=== PATIENT | male | born 1980 ===

== ENCOUNTER 2016-07-16 17:25 | Inpatient (IN) | payer MEDICAID, OTHER ==
[2016-07-16 17:29] VITALS: BMI 20.3
--- NOTE | 2016-07-16 18:05 | ED PDOC ---
Arrival/HPI - General Chief Complaint: Psychiatric Evaluation Time Seen by Provider: 07/16/16 17:39 Historian: Patient - History of Present Illness Narrative History of Present Illness (Text): 07/16/16 17:42 36 y/o male, nkda, biba for psychiatric evaluation due to the non-compliant with the psychiatric medication and being combative at home. Pt. has been agitated today, destroying the furniture, doesn't wanna take the psychiatric medication, no homicidal or suicidal ideation, no auditory or visual hallucination, no night sweat, no other medical or psychological complaints. Past Medical History - Provider Review Nursing Documentation Reviewed: Yes - Infectious Disease Hx of Infectious Diseases: None - Psychiatric Hx Psychophysiologic Disorder: Yes Hx Schizophrenia: Yes Hx Substance Use: No - Anesthesia Hx Anesthesia: No Hx Anesthesia Reactions: No Hx Malignant Hyperthermia: No Family/Social History - Physician Review Nursing Documentation Reviewed: Yes Family/Social History: Unknown Family HX Smoking Status: Current Some Days Smoker Hx Alcohol Use: Yes Hx Substance Use: No Allergies/Home Meds Allergies/Adverse Reactions: Allergies No Known Allergies Allergy (Verified 07/16/16 23:40) Home Medications: Home Meds Medication Instructions Recorded Confirmed No Known Home Med 07/16/16 07/16/16 Review of Systems - Review of Systems Constitutional: absent: Fatigue, Fevers Respiratory: absent: SOB, Cough, Sputum Cardiovascular: absent: Chest Pain Gastrointestinal: absent: Abdominal Pain, Diarrhea, Nausea, Vomiting Skin: absent: Rash, Pruritis, Skin Lesions, Laceration, Abscess, Ulcer, Cellulitis Physical Exam Vital Signs Reviewed: Yes Vital Signs Temp Pulse Resp BP Pulse Ox 07/16/16 22:50 88 18 127/93 H 100 07/16/16 21:00 79 18 147/84 98 07/16/16 19:12 89 18 141/99 H 99 07/16/16 17:35 98.4 F 90 16 140/95 H 100 Temperature: Afebrile Blood Pressure: Hypertensive Pulse: Regular Respiratory Rate: Normal Appearance: Positive for: Well-Appearing, Non-Toxic, Comfortable Pain Distress: None Mental Status: Positive for: Alert and Oriented X 3 - Systems Exam Head: Present: Atraumatic, Normocephalic Pupils: Present: PERRL Extroacular Muscles: Present: EOMI Conjunctiva: Present: Normal Mouth: Present: Moist Mucous Membranes Neck: Present: Normal Range of Motion Respiratory/Chest: Present: Clear to Auscultation, Good Air Exchange. No: Respiratory Distress, Accessory Muscle Use Cardiovascular: Present: Regular Rate and Rhythm, Normal S1, S2. No: Murmurs Abdomen: Present: Normal Bowel Sounds. No: Tenderness, Distention, Peritoneal Signs Back: Present: Normal Inspection Upper Extremity: Present: Normal Inspection. No: Cyanosis, Edema Lower Extremity: Present: Normal Inspection. No: Edema Neurological: Present: GCS=15, Speech Normal, Motor Func Grossly Intact, Gait Normal, Memory Normal Skin: Present: Warm, Dry, Normal Color. No: Rashes Psychiatric: Present: Alert, Oriented x 3, Normal Insight, Normal Concentration Medical Decision Making ED Course and Treatment: 07/16/16 18:07 -labs/ua/uds -ekg -chest x-ray -observe and reassess 07/16/16 19:43 -chest x-ray show no active disease -EKG: NSR @ 83 BPM, no ST elevation or depression, no T wave inversion -Labs are non-significant -UA and UDS show no acute findings -Pt. is medically clear and stable for psychiatric admission. -PES Miri clement and will evaluate the patient. 07/16/16 21:45 -Pt. evaluated by the PES, agreed to be admitted for schizophrenia - Lab Interpretations Lab Results: 07/16/16 18:15 07/16/16 18:15 Lab Results 07/16/16 18:38: Urine Color Yellow, Urine Appearance Clear, Urine pH 7.5, Ur Specific [place] 1.020, Urine Protein Negative, Urine Glucose (UA) Negative, Urine Ketones Negative, Urine Blood Negative, Urine Nitrate Negative, Urine Bilirubin Negative, Urine Urobilinogen 0.2, Ur Leukocyte Esterase Negative, Urine Opiates Screen Negative, Urine Methadone Screen Negative, Ur Barbiturates Screen Negative, Ur Phencyclidine Scrn Negative, Ur Amphetamines Screen Negative , U Benzodiazepines Scrn Negative, U Oth Cocaine Metabols Negative, U Cannabinoids Screen Negative 07/16/16 18:15: WBC 8.7, RBC 4.65, Hgb 14.4, Hct 40.8 L, MCV 87.7, MCH 31.0, MCHC 35.3, RDW 11.9, Plt Count 237, MPV 10.1, Gran % 62.2, Lymph % (Auto) 26.6, [place] % (Auto) 6.8 H, Eos % (Auto) 3.9, Baso % (Auto) 0.5, Gran # 5.40, Lymph # 2.3, [place] # 0.6, Eos # 0.3, Baso # 0.04, Sodium 139, Potassium 4.1, Chloride 101 , Carbon Dioxide 29, Anion Gap 13, BUN 13, Creatinine 1.0, Est GFR ( Amer ) > 60, Est GFR (Non-Af Amer) > 60, Random Glucose 125 H, Calcium 9.1, Total Bilirubin 0.6, AST 25, ALT 45, Alkaline Phosphatase 46, Total Protein 7.8, Albumin 4.1, Globulin 3.6, Albumin/Globulin Ratio 1.1, Salicylates < 1 L, Acetaminophen < 10.0 L, Alcohol, Quantitative < 10 I have reviewed the lab results: Yes Interpretation: No clinic. lab abnormalty - RAD Interpretation Radiology Orders: 07/16/16 17:42 CHEST PORTABLE [RAD] Stat no active disease Reinsurance Claims Analyst: Radiologist - EKG Interpretation EKG Interpretation (Text): 07/16/16 18:08 NSR @ 83 BPM, no ST elevation or depression, no T wave inversion Interpreted by ED Physician: Yes Type: 12 lead EKG Comparison: No previous EKG avail. - Medication Orders Current Medication Orders: Acetaminophen (Tylenol 325mg Tab) 650 mg PO Q4H PRN PRN Reason: Pain, Mild (1-3) Al Hydrox/Mg Hydrox/Simethicone (Maalox Plus 30 Ml) 30 ml PO DAILY PRN PRN Reason: Upset Stomach Haloperidol (Haldol) 5 mg PO Q6H PRN; Protocol PRN Reason: Agitation Haloperidol Lactate (Haldol) 5 mg IM Q6H PRN; Protocol PRN Reason: Agitation Lorazepam (Ativan) 2 mg PO Q6H PRN; Protocol PRN Reason: Agitation Lorazepam (Ativan) 2 mg IM Q6H PRN; Protocol PRN Reason: Agitation Lorazepam (Ativan) 1 mg PO AMHS [facility] PRN Reason: Protocol Last Admin: 07/18/16 22:36 Dose: 1 MG Behavioural Document 07/18/16 22:36 CLI (Rec: 07/18/16 22:36 CLI [id number]) Maintenance Maintenance Dose Yes Magnesium Hydroxide (Milk Of Magnesia) 30 ml PO DAILY PRN PRN Reason: Constipation Olanzapine (Zyprexa Zydis) 5 mg PO AMHS SHAR[facility] PRN Reason: Protocol Last Admin: 07/18/16 22:36 Dose: 5 MG Behavioural Document 07/18/16 22:36 CLI (Rec: 07/18/16 22:36 CLI [id number]) Maintenance Maintenance Dose Yes Zaleplon (Sonata) 10 mg PO HS PRN PRN Reason: Insomnia Last Admin: 07/17/16 22:41 Dose: 10 MG Discontinued Medications Citalopram Hydrobromide (Celexa) 10 mg PO DAILY SHARIF Last Admin: 07/17/16 10:16 Dose: 10 MG Lorazepam (Ativan) 0.5 mg PO AMHS SHAR[facility] PRN Reason: Protocol Last Admin: 07/18/16 09:13 Dose: 0.5 MG Re-Assess: Reassess Psych Meds Document 07/18/16 10:13 ABO (Rec: 07/18/16 18:16 ABO [id number]) Reassess Psych Med Ineffective-LIP notifed - PA / WHARF HAND / Resident Statement MD/DO has reviewed & agrees with the documentation as recorded. Disposition/Present on Arrival - Present on Arrival Any Indicators Present on Arrival: No History of DVT/PE: No History of Uncontrolled Diabetes: No Urinary Catheter: No History of Decub. Ulcer: No History Surgical Site Infection Following: None - Disposition Have Diagnosis and Disposition been Completed?: Yes Diagnosis: Schizophrenia Disposition: HOSPITALIZED Disposition Time: 21:46 Patient Plan: Admission Patient Problems: Current Active Problems Problem Status Diagnosed Schizophrenia Acute Condition: GOOD
[2016-07-16 18:30] LABS: ADD MANUAL DIFF? NO
[2016-07-16 18:36] LABS: BASO # 0.04 K/mm3 (0.0-2.0); BASO % 0.5 % (0.0-3.0); EOS # 0.3 (0.0-0.7); EOS % 3.9 % (1.5-5.0); GRAN % 62.2 % (50.0-68.0); HEMATOCRIT 40.8 % (42.0-52.0); LYMPH # 2.3 (1.2-3.4); LYMPH % 26.6 % (22.0-35.0); MEAN CELL VOLUME 87.7 fL (80.0-105.0); MEAN CORPUSCULAR HGB CONC 35.3 g/dl (31.0-37.0); MEAN PLATELET VOLUME 10.1 fl (7.0-11.0); MONO # 0.6 (0.1-0.6); MONO % 6.8 % (1.0-6.0); PLATELET COUNT 237 10^3/uL (120.0-450.0); RED CELL DISTRIBUTION WIDTH 11.9 % (11.5-14.5); WHITE BLOOD COUNT 8.7 10^3/ul (4.5-11.0)
[2016-07-16 18:43] LABS: ALB/GLOB RATIO 1.1 (1.1-1.8); ALKALINE PHOSPHATASE 46 U/L (38-133); ALT/SGPT 45 U/L (7-56); AST/SGOT 25 U/L (15-59); BILIRUBIN,TOTAL 0.6 mg/dL (0.2-1.3); BLOOD UREA NITROGEN 13 mg/dL (7-21); CALCIUM 9.1 mg/dL (8.4-10.5); CARBON DIOXIDE 29 mmol/L (21-33); CHLORIDE 101 mmol/L (98-107); GFR AFRICAN-AMERICAN > 60; GLUCOSE,RANDOM 125 mg/dL (70-110); POTASSIUM 4.1 mmol/L (3.6-5.0); SODIUM 139 mmol/L (132-148); TOTAL PROTEIN 7.8 g/dL (5.8-8.3)
[2016-07-16 19:12] LABS: PH,URINE 7.5 (4.7-8.0); URINE BILIRUBIN NEGATIVE (NEGATIVE); URINE BLOOD NEGATIVE (NEGATIVE); URINE GLUCOSE (UA) NEGATIVE (NEGATIVE); URINE KETONE NEGATIVE (NEGATIVE); URINE LEUKOCYTE ESTERASE NEGATIVE Leu/uL (NEGATIVE); URINE PROTEIN NEGATIVE mg/dL (<30 mg/dL); URINE UROBILINOGEN 0.2 E.U./dL (<1 E.U./dL)
[2016-07-16 19:35] LABS: URINE APPEARANCE CLEAR (CLEAR); URINE COLOR YELLOW (YELLOW)
[2016-07-16] MEDS ORDERED: Alum-Mag Hydrox-Simethicone Susp (30 mL) PO PRN (23:23)
[2016-07-16] MEDS ORDERED: Magnesium Hydroxide Susp 30 ml UD PO PRN (23:23)
[2016-07-17 08:22] LABS: CHOLESTEROL 168 mg/dL (130-200); GLUCOSE,FASTING 86 mg/dL (65-110)
--- NOTE | 2016-07-17 09:28 | RAD ---
HISTORY: Medical clearance. Technique: Single view portable semi erect @ 18:00. COMPARISON: No prior. FINDINGS: LUNGS: No active pulmonary disease. PLEURA: No significant pleural effusion identified, no pneumothorax apparent. CARDIOVASCULAR: Normal. OSSEOUS STRUCTURES: No significant abnormalities. VISUALIZED UPPER ABDOMEN: Normal. OTHER FINDINGS: None. IMPRESSION: No active disease. Concordant results with the preliminary interpretation rendered by the emergency department physician procedure.
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
[2016-07-17] MEDS: OLANZapine 5 mg Disintegrating Tab PO SCH ×2 (15:00→22:42)
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
--- NOTE | 2016-07-17 18:06 | CARD ---
APPROVED REPORT EKG Measurement Heart [id number] <Conclusion> Normal sinus rhythm Normal ECG
[2016-07-18] MEDS: OLANZapine 5 mg Disintegrating Tab PO SCH ×2 (09:13→22:36)
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
--- NOTE | 2016-07-19 09:15 | PCM.PYCHPN ---
Psychiatric Progress Note - Psychiatric Progress Note Patient seen today, length of contact: 25 minutes Patient Chief Complaint: "tired, doing okay" Problems Identified/Issues Discussed: I reviewed assessment and recent notes. Patient was interviewed at bedside. Patient is calm and superficially cooperative during questioning. He is alert and oriented to month and year. Indicates that he is "tired, doing okay". Affect is flat. Patient does not appear to be hallucinating and he denies having any hallucinations. Delusions were not elicited though does appear preoccupied. Patient denies any new discomfort or pain and has been tolerating his medications. Sleeping well overnight. Nursing notes indicate that patient has been visible on the unit and generally keeps himself. Patient has minimal contact with other patients, appears shy and quiet. Not observed to be responding to internal stimuli. There were no behavioral issues overnight Diagnostic Results: schizophrenia with catatonic features r/o schizoaffective Medication Change: No ( ) Medical Record Reviewed: Yes Mental Status Examination - Cognitive Function Orientation: Person, Place Memory: Intact Attention: Poor Concentration: Poor Association: Loose Fund of Knowledge: Poor - Mood Mood: Depressed ("tired, doing okay"), Anxious - Affect Affect: Flat - Speech Speech: Appropriate - Formal Thought Process Formal Thought Process: Delusions (none elicited today), Paranoia ("my mother was intimidating me, she was smirking") - Suicidal Ideation Suicidal Ideation: No - Homicidal Ideation Homicidal Ideation: No Goal/Treatment Plan - Goal/Treatment Plan Need for Continued Stay: Remain at risks for inpatient hospitalization, Severe depression anxiety, Discharge may exacerbated symptoms, Severe functional impairment Progress Toward Problem(s) and Goals/Treatment Plan: * c/w current tx and plan * No new weekend labs * Vitals reviewed and noted below: Selected Entries 07/18/16 07/18/16 07:07 16:26 Temperature 97.9 F Pulse Rate 63 81 Respiratory 20 Rate Blood Pressure 95/63 L 113/76 Estimated Date of D/C: 07/25/16 ( monitor closely)
[2016-07-19] MEDS: OLANZapine 5 mg Disintegrating Tab PO SCH ×2 (09:52→21:51)
[2016-07-20] MEDS: OLANZapine 5 mg Disintegrating Tab PO SCH ×2 (09:17→21:34)
--- NOTE | 2016-07-20 09:39 | PCM.PYCHPN ---
Psychiatric Progress Note - Psychiatric Progress Note Patient seen today, length of contact: 25 minutes Patient Chief Complaint: "feeling fine, getting better" Problems Identified/Issues Discussed: I reviewed recent notes and patient was interviewed at bedside. Patient is calm and superficially cooperative during questioning. He remains alert and oriented to month, year and location. Indicates that he is "feeling fine, getting better". Affect is flat. Patient does not appear to be hallucinating and he denies having any hallucinations. Delusions were not elicited though he does appear preoccupied. Patient denies any new discomfort or pain and has been tolerating his medications. Slept well last night. Nursing notes indicate that patient has been visible on the unit and still generally keeps himself. Patient has minimal contact with other patients, appears shy and quiet. Not observed to be responding to internal stimuli. There were no behavioral issues over the weekend Diagnostic Results: schizophrenia with catatonic features r/o schizoaffective Medication Change: No ( ) Medical Record Reviewed: Yes (reports, labs, vitals, notes) Mental Status Examination - Cognitive Function Orientation: Person, Place Memory: Intact Attention: Poor Concentration: Poor Association: Loose Fund of Knowledge: Poor - Mood Mood: Depressed ( "feeling fine, getting better"), Anxious - Affect Affect: Flat - Speech Speech: Appropriate - Formal Thought Process Formal Thought Process: Delusions (none elicited this weekend), Paranoia ("my mother was intimidating me, she was smirking") - Suicidal Ideation Suicidal Ideation: No - Homicidal Ideation Homicidal Ideation: No Goal/Treatment Plan - Goal/Treatment Plan Need for Continued Stay: Remain at risks for inpatient hospitalization, Severe depression anxiety, Discharge may exacerbated symptoms, Severe functional impairment Progress Toward Problem(s) and Goals/Treatment Plan: * c/w current tx and plan * No new weekend labs * Vitals reviewed and noted below: Selected Entries 07/19/16 07/20/16 06:00 07:51 Temperature 97.3 F L 97.5 F L Pulse Rate 68 73 Respiratory 20 20 Rate Blood Pressure 113/72 114/76 Estimated Date of D/C: 07/25/16 ( monitor closely)
[2016-07-21] MEDS: OLANZapine 5 mg Disintegrating Tab PO SCH (08:58)
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
[2016-07-22] MEDS: OLANZapine 5 mg Disintegrating Tab PO SCH ×2 (09:45→22:29)
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
[2016-07-23] MEDS: OLANZapine 5 mg Disintegrating Tab PO SCH ×2 (09:28→21:56)
--- NOTE | 2016-07-23 11:55 | PCM.PYCHPN ---
Psychiatric Progress Note - Psychiatric Progress Note Patient seen today, length of contact: 25 min Patient Chief Complaint: "feeling fine, getting better" Problems Identified/Issues Discussed: I reviewed recent notes and patient was interviewed at bedside. Patient is calm and superficially cooperative during questioning. Indicates that he is "feeling fine, getting better", current mood is "neutral". Feels more hopeful than hopeless. Affect remains flat and guarded. Responses are brief without elaboration though relevant to questioning. He still doesn't appear completely engaged during my interview. Patient denies having any hallucinations. Delusions were not elicited though he does appear preoccupied. Anxiety is under control. Patient denies any new discomfort or pain and has been tolerating his medications. Slept well last night. Nursing notes indicate that patient has been withdrawn and guarded on the unit with minimal participation. There were no behavioral issues overnight Diagnostic Results: schizophrenia with catatonic features r/o schizoaffective Medication Change: No ( ) Medical Record Reviewed: Yes (reports, labs, vitals, notes) Mental Status Examination - Cognitive Function Orientation: Person, Place, Situation Memory: Intact Attention: WNL Concentration: Poor Association: Loose Fund of Knowledge: Poor - Mood Mood: Depressed ( "feeling fine, getting better"), Anxious - Affect Affect: Flat - Speech Speech: Appropriate - Formal Thought Process Formal Thought Process: Delusions (none elicited ), Paranoia (appears guarded, flat today) - Suicidal Ideation Suicidal Ideation: No - Homicidal Ideation Homicidal Ideation: No Goal/Treatment Plan - Goal/Treatment Plan Need for Continued Stay: Remain at risks for inpatient hospitalization, Severe depression anxiety, Discharge may exacerbated symptoms, Severe functional impairment Progress Toward Problem(s) and Goals/Treatment Plan: * c/w current tx and plan * c/w Zyprexa Zydis 5 mg AM and 10 mg HS for psychosis/disorganization * c/w Ativan 1 mg AM/HS for anxiety and mood control, also as a prophylaxis for EPS * c/w [place] 10 mg HS prn: insomnia * No new labs overnight * Vitals reviewed and noted below: Selected Entries 07/23/16 06:00 Temperature 97.7 F Pulse Rate 84 Respiratory 20 Rate Blood Pressure 133/98 H Estimated Date of D/C: 07/25/16 ( monitor closely)
--- NOTE | 2016-07-24 10:29 | PCM.PYCHPN ---
Psychiatric Progress Note - Psychiatric Progress Note Patient seen today, length of contact: 25 min Patient Chief Complaint: "mood is normal" Problems Identified/Issues Discussed: I reviewed recent notes and patient was interviewed at bedside. Patient is calm and superficially cooperative during questioning. Appearance is unkempt. Patient still reports that he is feeling fine and "mood is normal". In general, he reports improvement in functioning since admission. Affect is quiet and flat with some thought blocking still present. He still doesn't appear completely engaged during my interview. Responses are brief without elaboration though relevant to questioning. Patient denies having any hallucinations. Delusions were not elicited though he does appear preoccupied. Anxiety is under control. Patient denies any new discomfort or pain and has been tolerating his medications. Slept well last night. Nursing notes indicate that patient appears preoccupied with flat affect. And appears to want to improve. There were no behavioral issues overnight Diagnostic Results: schizophrenia with catatonic features r/o schizoaffective Medication Change: No ( ) Medical Record Reviewed: Yes (reports, labs, vitals, notes) Mental Status Examination - Cognitive Function Orientation: Person, Place, Situation Memory: Intact Attention: WNL Concentration: Poor Association: Loose Fund of Knowledge: Poor - Mood Mood: Depressed ("mood is normal"), Anxious - Affect Affect: Flat - Speech Speech: Appropriate - Formal Thought Process Formal Thought Process: Delusions (none elicited ), Paranoia (appears guarded, flat today, no paranoid delusions elicited) - Suicidal Ideation Suicidal Ideation: No - Homicidal Ideation Homicidal Ideation: No Goal/Treatment Plan - Goal/Treatment Plan Need for Continued Stay: Remain at risks for inpatient hospitalization, Severe depression anxiety, Discharge may exacerbated symptoms, Severe functional impairment Progress Toward Problem(s) and Goals/Treatment Plan: * c/w current tx and plan * c/w Zyprexa Zydis 5 mg AM and 10 mg HS for psychosis/disorganization * c/w Ativan 1 mg AM/HS for anxiety and mood control, also as a prophylaxis for EPS * c/w Sonata 10 mg HS prn: insomnia * No new labs overnight * Vitals reviewed and noted below: Selected Entries 07/24/16 06:25 Temperature 97.7 F Pulse Rate 70 Respiratory 20 Rate Blood Pressure 109/60 Estimated Date of D/C: 07/25/16 ( monitor closely)
[2016-07-24] MEDS: OLANZapine 5 mg Disintegrating Tab PO SCH ×2 (10:46→21:53)
[2016-07-25] MEDS: OLANZapine 5 mg Disintegrating Tab PO SCH (09:55)
[2016-07-25] MEDS ORDERED: OLANZapine 5 mg Disintegrating Tab PO SCH ×2 (11:04→11:19)
--- NOTE | 2016-07-25 11:06 | PCM.PYCHPN ---
Psychiatric Progress Note - Psychiatric Progress Note Patient seen today, length of contact: 25 min Patient Chief Complaint: "mood is normal" Problems Identified/Issues Discussed: I reviewed recent notes and patient was interviewed at bedside as well as during treatment team meeting. Patient is calm and superficially cooperative during questioning. Appearance is unkempt. He is a little oddly related but not bizarre. Patient still reports that he is feeling fine and "mood is normal". In general, he reports improvement in functioning since admission. Affect is quiet and flat with some thought blocking still present. Responses are brief without elaboration though relevant to questioning. He still doesn't appear completely engaged during my interview. I repeatedly reviewed treatment goals during private interview as well as during treatment team meeting. Patient still refused to sign treatment plan during treatment team meeting. Patient denies having any hallucinations. Delusions were not elicited. Anxiety is reportedly under control. Patient denies any new discomfort or pain and has been tolerating his medications. Slept well last night. Nursing notes indicate that patient appears internally preoccupied with flat affect though brighter since admission. He has been cooperative on the unit. Appears to want to improve. There were no behavioral issues overnight Diagnostic Results: schizophrenia with catatonic features r/o schizoaffective Medication Change: Yes (Increased zyprexa on 07/25/16) Medical Record Reviewed: Yes (reports, labs, vitals, notes) Mental Status Examination - Cognitive Function Orientation: Person, Place, Situation Memory: Intact Attention: WNL Concentration: Poor Association: Loose Fund of Knowledge: Poor - Mood Mood: Depressed ("mood is normal"), Anxious - Affect Affect: Flat - Speech Speech: Appropriate - Formal Thought Process Formal Thought Process: Delusions (none elicited ), Paranoia (appears guarded, flat today, no paranoid delusions elicited) - Suicidal Ideation Suicidal Ideation: No - Homicidal Ideation Homicidal Ideation: No Goal/Treatment Plan - Goal/Treatment Plan Need for Continued Stay: Remain at risks for inpatient hospitalization, Severe depression anxiety, Discharge may exacerbated symptoms, Severe functional impairment Progress Toward Problem(s) and Goals/Treatment Plan: * c/w current tx and plan * Increased Zyprexa Zydis on 07/25/16 to 5 mg AM and 12.5 mg HS for psychosis/ disorganization * c/w Ativan 1 mg AM/HS for anxiety and mood control, also as a prophylaxis for EPS * c/w Sonata 10 mg HS prn: insomnia * No new labs overnight * Vitals reviewed and noted below: Selected Entries 07/25/16 08:29 Temperature 98 F Pulse Rate 78 Respiratory 17 Rate Blood Pressure 117/74 Estimated Date of D/C: 07/25/16 ( monitor closely)
[2016-07-26] MEDS: OLANZapine 5 mg Disintegrating Tab PO SCH ×2 (09:02→21:51)
--- NOTE | 2016-07-26 09:19 | PCM.PYCHPN ---
Psychiatric Progress Note - Psychiatric Progress Note Patient seen today, length of contact: 25 min Patient Chief Complaint: "mood is normal" Problems Identified/Issues Discussed: I reviewed recent notes and patient was interviewed at bedside. Patient is calm and superficially cooperative during questioning. Appearance remains unkempt. He is still oddly related but not overtly bizarre. Patient appears quite preoccupied with flat affect and notable thought blocking. Nursing notes indicated that he made a bizarre statement about the [employer] in group yesterday. Patient still reports that his "mood is normal". Responses are brief without elaboration though relevant to questioning. He still doesn't appear completely engaged during my interview Patient denies having any hallucinations. Delusions were not elicited. Anxiety is reportedly under control. Patient denies any new discomfort or pain and has been tolerating his medications. Slept well again last night. There were no behavioral issues overnight I review social work note which indicated that patient's mother was contacted. Mother indicated the patient is not a baseline and she has concerns about patient stability if he should be discharged home at this time. Patient has a history of being aggressive with mother. Mothers were questioning the patient be discharged to a long-term if he is agreeable Diagnostic Results: schizophrenia with catatonic features r/o schizoaffective Medication Change: Yes (Increased zyprexa on 07/25/16 and again on 07/26/16) Medical Record Reviewed: Yes (reports, labs, vitals, notes) Mental Status Examination - Cognitive Function Orientation: Person, Place, Situation Memory: Intact Attention: WNL Concentration: Poor Association: Loose Fund of Knowledge: Poor - Mood Mood: Depressed ("mood is normal"), Anxious - Affect Affect: Flat - Speech Speech: Appropriate - Formal Thought Process Formal Thought Process: Delusions (government related delusions noted on 07/25/16 ), Paranoia (appears guarded, flat today, no paranoid delusions elicited) - Suicidal Ideation Suicidal Ideation: No - Homicidal Ideation Homicidal Ideation: No Goal/Treatment Plan - Goal/Treatment Plan Need for Continued Stay: Remain at risks for inpatient hospitalization, Severe depression anxiety, Discharge may exacerbated symptoms, Severe functional impairment Progress Toward Problem(s) and Goals/Treatment Plan: * c/w current tx and plan * Increased Zyprexa Zydis on 07/25/16 to 5 mg AM & 12.5 mg HS for psychosis/ disorganization and again on 07/26/16 to 5 mg AM & 15 mg HS for delusional TP * c/w Ativan 1 mg AM/HS for anxiety and mood control, also as a prophylaxis for EPS * c/w Sonata 10 mg HS prn: insomnia * No new labs overnight * Vitals reviewed and noted below: Selected Entries 07/25/16 07/25/16 08:29 16:23 Temperature 98 F Pulse Rate 78 90 Respiratory 17 Rate Blood Pressure 117/74 124/81 Estimated Date of D/C: 07/25/16 ( monitor closely)
--- NOTE | 2016-07-27 08:55 | PCM.PYCHPN ---
Psychiatric Progress Note - Psychiatric Progress Note Patient seen today, length of contact: 25 min Patient Chief Complaint: "mood is normal" Problems Identified/Issues Discussed: I reviewed recent notes and patient was interviewed at bedside. Patient is calm and superficially cooperative during questioning. Appearance remains unkempt. He is oddly related but again, not overtly bizarre. Eye contact is poor. Patient still appears quite preoccupied with flat affect and notable thought blocking. Negative symptoms have demonstrated minimal improvement despite encouragement by this provider and he still doesn't appear completely engaged during my interview Patient flatly reports that his "mood is normal". Responses are brief without elaboration though relevant to questioning. Patient denies having any hallucinations. Delusions were not elicited. Anxiety is reportedly under control. Patient denies any new discomfort or pain and has been tolerating his medications. Slept well again last night. There were no behavioral issues over the weekend. I review social work note which indicated that patient's mother was contacted. Mother indicated the patient is not a baseline and she has concerns about patient stability if he should be discharged home at this time. Patient has a history of being aggressive with mother. Mother was questioning whether patient can be discharged to a long-term if he is agreeable Diagnostic Results: schizophrenia with catatonic features r/o schizoaffective Medication Change: Yes (Increased zyprexa on 07/25/16 and again on 07/26/16) Medical Record Reviewed: Yes (reports, labs, vitals, notes) Mental Status Examination - Cognitive Function Orientation: Person, Place, Situation Memory: Intact Attention: WNL Concentration: Poor Association: Loose Fund of Knowledge: Poor - Mood Mood: Depressed ("mood is normal"), Anxious - Affect Affect: Flat - Speech Speech: Appropriate - Formal Thought Process Formal Thought Process: Delusions (government related delusions noted on 07/25/16 ), Paranoia (appears guarded, flat today, no paranoid delusions elicited) - Suicidal Ideation Suicidal Ideation: No - Homicidal Ideation Homicidal Ideation: No Goal/Treatment Plan - Goal/Treatment Plan Need for Continued Stay: Remain at risks for inpatient hospitalization, Severe depression anxiety, Discharge may exacerbated symptoms, Severe functional impairment Progress Toward Problem(s) and Goals/Treatment Plan: * c/w current tx and plan * Increased Zyprexa Zydis on 07/25/16 to 5 mg AM & 12.5 mg HS for psychosis/ disorganization and again on 07/26/16 to 5 mg AM & 15 mg HS for delusional TP * c/w Ativan 1 mg AM/HS for anxiety and mood control, also as a prophylaxis for EPS * c/w Sonata 10 mg HS prn: insomnia * No new labs overnight * Vitals reviewed and noted below: Selected Entries 07/26/16 07/26/16 06:00 16:16 Temperature 97.9 F Pulse Rate 72 84 Respiratory 18 Rate Blood Pressure 118/72 119/81 Estimated Date of D/C: 07/25/16 ( monitor closely)
[2016-07-27] MEDS: OLANZapine 5 mg Disintegrating Tab PO SCH ×2 (09:40→21:54)
[2016-07-28 06:49] VITALS: O2SAT 98
[2016-07-28] MEDS: OLANZapine 5 mg Disintegrating Tab PO SCH ×2 (09:35→21:15)
--- NOTE | 2016-07-28 10:56 | PCM.PYCHPN ---
Psychiatric Progress Note - Psychiatric Progress Note Patient seen today, length of contact: 25 min Patient Chief Complaint: "mood is normal" Problems Identified/Issues Discussed: I reviewed recent notes and patient was interviewed at bedside. Patient is calm and superficially cooperative during questioning. Appearance remains unkempt. He is oddly related but again, not overtly bizarre. Eye contact is poor. Patient still appears quite preoccupied with flat affect and noticeable thought blocking. Negative symptoms do not appear to have improved despite encouragement by this provider. I review circumstances of his admission and reason for continued hospitalization. I also review his mother's concerns about him. He doesn't respond much to this information and still doesn't appear completely engaged during my interview. Nonetheless staff have noticed that patient is a little more interactive the unit and likes to play card games with peers. He also seems better able to communicate his needs. Patient flatly reports that his "mood is normal", no change from his prior responses. Responses are brief without elaboration though relevant to questioning. Patient denies having any hallucinations. Delusions were not elicited. Anxiety is reportedly under control. Patient denies any new discomfort or pain and has been tolerating his medications. Slept well again last night. There were no behavioral issues over the weekend. I review social work note which indicated that patient's mother was contacted late last week. Mother indicated the patient is not at baseline and she has concerns about patients stability if he should be discharged home at this time. Patient has a history of being aggressive with mother. Mothers wondered whether the patient can be discharged to a senior living if he is agreeable Diagnostic Results: schizophrenia with catatonic features r/o schizoaffective Medication Change: Yes (Increased zyprexa on 07/25/16 and again on 07/26/16) Medical Record Reviewed: Yes (reports, labs, vitals, notes) Mental Status Examination - Cognitive Function Orientation: Person, Place, Situation Memory: Intact Attention: WNL Concentration: Poor Association: Loose Fund of Knowledge: Poor - Mood Mood: Depressed ("mood is normal"), Anxious - Affect Affect: Flat - Speech Speech: Appropriate - Formal Thought Process Formal Thought Process: Delusions (government related delusions noted on 07/25/16 ), Paranoia (appears guarded, flat today, no paranoid delusions elicited) - Suicidal Ideation Suicidal Ideation: No - Homicidal Ideation Homicidal Ideation: No Goal/Treatment Plan - Goal/Treatment Plan Need for Continued Stay: Remain at risks for inpatient hospitalization, Severe depression anxiety, Discharge may exacerbated symptoms, Severe functional impairment Progress Toward Problem(s) and Goals/Treatment Plan: * c/w current tx and plan * Increased Zyprexa Zydis on 07/25/16 to 5 mg AM & 12.5 mg HS for psychosis/ disorganization and again on 07/26/16 to 5 mg AM & 15 mg HS for delusional TP * c/w Ativan 1 mg AM/HS for anxiety and mood control, also as a prophylaxis for EPS * c/w Sonata 10 mg HS prn: insomnia * No new labs overnight * Vitals reviewed and noted below: Selected Entries 07/27/16 07/27/16 06:00 14:00 Temperature 97.7 F Pulse Rate 71 85 Respiratory 18 Rate Blood Pressure 95/52 L 111/73 Estimated Date of D/C: 07/25/16 ( monitor closely)
[2016-07-29] MEDS: OLANZapine 5 mg Disintegrating Tab PO SCH ×3 (09:47→21:39)
--- NOTE | 2016-07-29 10:15 | PCM.PYCHPN ---
Psychiatric Progress Note - Psychiatric Progress Note Patient seen today, length of contact: 25 min Patient Chief Complaint: "mood is normal" Problems Identified/Issues Discussed: I reviewed recent notes and patient was interviewed at bedside. Patient is calm and superficially cooperative during questioning. Appearance remains unkempt. He is oddly related but again, not overtly bizarre. Eye contact is poor. Patient still appears quite preoccupied with flat affect and noticeable thought blocking. Reluctantly responds to questioning. Patient flatly reports that his "mood is normal", no change from his prior responses. Responses are brief without elaboration though relevant to questioning Negative symptoms do not appear to have improved significantly despite encouragement by this provider. On a daily basis I review circumstances of his admission and reason for continued hospitalization. I also review his mother's concerns about him. He doesn't respond much to this information and still doesn't appear completely engaged during my interview. Regarding his aggression towards his mother [employer], he states "I don't really think about it". Nonetheless staff have noticed that patient is a little more interactive the unit and likes to play card games with peers. He also seems better able to communicate his needs. Patient is well aware of family meeting planned with social work today at 9 am. Diagnostic Results: schizophrenia with catatonic features r/o schizoaffective Medication Change: Yes (Increased zyprexa on 07/25/16 and again on 07/26/16) Medical Record Reviewed: Yes (reports, labs, vitals, notes) Mental Status Examination - Cognitive Function Orientation: Person, Place, Situation Memory: Intact Attention: WNL Concentration: Poor Association: Loose Fund of Knowledge: Poor - Mood Mood: Depressed ("mood is normal"), Anxious - Affect Affect: Flat - Speech Speech: Appropriate - Formal Thought Process Formal Thought Process: Delusions (government related delusions noted on 07/25/16 ), Paranoia (appears guarded, flat today, no paranoid delusions elicited) - Suicidal Ideation Suicidal Ideation: No - Homicidal Ideation Homicidal Ideation: No Goal/Treatment Plan - Goal/Treatment Plan Need for Continued Stay: Remain at risks for inpatient hospitalization, Severe depression anxiety, Discharge may exacerbated symptoms, Severe functional impairment Progress Toward Problem(s) and Goals/Treatment Plan: * c/w current tx and plan * Patient seen by Dr. Dominguez on 07/17/16~signed off case * Increased Zyprexa Zydis on 07/25/16 to 5 mg AM & 12.5 mg HS for psychosis/ disorganization and again on 07/26/16 to 5 mg AM & 15 mg HS for delusional TP. Increased Zyprexa again on 07/29/16 to 5 mg AM & 17.5 mg HS for continued negative symptoms. * c/w Ativan 1 mg AM/HS for anxiety and mood control, also as a prophylaxis for EPS * c/w Sonata 10 mg HS prn: insomnia * No new labs overnight * Vitals reviewed and noted below: Selected Entries 07/28/16 07/28/16 06:48 17:12 Temperature 97.2 F L Pulse Rate 64 81 Respiratory 18 Rate Blood Pressure 116/72 118/77 Estimated Date of D/C: 07/25/16 ( monitor closely)
--- NOTE | 2016-07-29 16:39 | CP.PCM.PN ---
<Nieves Cao - Last Filed: 07/29/16 16:42> Subjective - Date & Time of Evaluation Date of Evaluation: 07/29/16 Time of Evaluation: 14:00 - Subjective Subjective: Hospitalist progress note for Dr. Kumar Chamorro Pt s/e at bedside this afternoon. Patient was complaining of intermittent leg pain, mostly in his knees. Reports pain as a sharp pain or a soreness, that lasts 15-30 seconds. Has had 2-3 episodes of this pain over the past two to three days. Also feels like his thigh muscles are a little sore and complains of generalized weakness. Denies any instability in his gait but reports that he has to move slowly because he feels weak. Denies any numbness, tingling, loss of motor function, focal weakness or paralysis, back pain, loss of bladder or bowel function, easy tripping, chest pain, SOB, cough, recent trauma to his back or legs, calf pain or swelling, pedal edema, fevers, or chills. Patient states that he believes his symptoms are due to his state of inactivity since being on the psychiatric unit. Recently started Zyprexa and Ativan for his psychological issues. Denies any history of arthritis Objective - Vital Signs/Intake and Output Vital Signs (last 24 hours): Temp Pulse Resp BP Pulse Ox 98.2 F 67 19 101/62 98 07/29/16 06:36 07/29/16 06:36 07/29/16 06:36 07/29/16 06:36 07/28/16 06:48 - Medications Medications: Current Medications Acetaminophen (Tylenol 325mg Tab) 650 mg PO Q4H PRN PRN Reason: Pain, Mild (1-3) Al Hydrox/Mg Hydrox/Simethicone (Maalox Plus 30 Ml) 30 ml PO DAILY PRN PRN Reason: Upset Stomach Haloperidol (Haldol) 5 mg PO Q6H PRN; Protocol PRN Reason: Agitation Haloperidol Lactate (Haldol) 5 mg IM Q6H PRN; Protocol PRN Reason: Agitation Lorazepam (Ativan) 2 mg PO Q6H PRN; Protocol PRN Reason: Agitation Lorazepam (Ativan) 2 mg IM Q6H PRN; Protocol PRN Reason: Agitation Lorazepam (Ativan) 1 mg PO AMHS [facility] PRN Reason: Protocol Last Admin: 07/29/16 09:43 Dose: 1 mg Magnesium Hydroxide (Milk Of Magnesia) 30 ml PO DAILY PRN PRN Reason: Constipation Olanzapine (Zyprexa Zydis) 5 mg PO DAILY@0900 [facility] PRN Reason: Protocol Last Admin: 07/29/16 09:47 Dose: 5 mg Olanzapine (Zyprexa Zydis) 15 mg PO HS [facility] PRN Reason: Protocol Last Admin: 07/28/16 21:15 Dose: 15 mg Olanzapine (Zyprexa Zydis) 2.5 mg PO HS [facility] PRN Reason: Protocol Zaleplon (Sonata) 10 mg PO HS PRN PRN Reason: Insomnia Last Admin: 07/28/16 21:15 Dose: 10 mg - Constitutional Appears: Well, Non-toxic, No Acute Distress - Head Exam Head Exam: ATRAUMATIC, NORMOCEPHALIC - Eye Exam Eye Exam: EOMI, Normal appearance, PERRL. absent: Conjunctival injection, Scleral icterus Pupil Exam: NORMAL ACCOMODATION - ENT Exam ENT Exam: Mucous Membranes Moist, Normal Oropharynx - Respiratory Exam Respiratory Exam: Clear to Ausculation Bilateral, NORMAL BREATHING PATTERN. absent: Accessory Muscle Use, Respiratory Distress - Cardiovascular Exam Cardiovascular Exam: REGULAR RHYTHM, +S1, +S2 - GI/Abdominal Exam GI & Abdominal Exam: Soft. absent: Distended - Extremities Exam Extremities Exam: Full ROM, Normal Inspection, Tenderness (mild tenderness in the muscles). absent: Calf Tenderness, Pedal Edema - Back Exam Back Exam: NORMAL INSPECTION. absent: CVA tenderness (L), CVA tenderness (R), paraspinal tenderness, vertebral tenderness - Neurological Exam Neurological Exam: Alert, Awake, CN II-XII Intact, Oriented x3 Neuro motor strength exam: Left Upper Extremity: 5, Right Upper Extremity: 5, Left Lower Extremity: 5, Right Lower Extremity: 5 Additional comments: Gross motor and sensation to light touch intact on lower extremities BL. Straight leg raise was negative for pain - Psychiatric Exam Psychiatric exam: Flat Affect, Normal Mood - Skin Skin Exam: Dry, Intact, Normal Color, Warm Assessment and Plan - Assessment and Plan (Free Text) Assessment: 36 year old male with past medical history of schizophrenia was admitted to psychiatry unit for combative behaviors at home now complaining of 2 days intermittent BL leg pain Leg pain Possibly due to inactivity or new medication regimen No evidence of neurological pathology or DVT LFT's on 07/16 wnl -Tylenol PRN for leg pain -encourage ambulation -encourage hydration Schizophrenia -Management per psychiatry unit Polysubtstance abuse (marijuana, tobacco, alcohol) -cessation was advised -No withdrawal symptoms appreciated Please re-contact medicine team if pain persists or new symptoms or concerns arise Thank you Discussed with Dr. Kumar Cao, PGY-8 <Kumar Chamorro - Last Filed: 08/04/16 16:53> Objective - Vital Signs/Intake and Output Vital Signs (last 24 hours): Temp Pulse Resp BP Pulse Ox 97.5 F L 63 20 106/67 98 08/04/16 07:18 08/04/16 07:18 08/04/16 07:18 08/04/16 07:18 07/28/16 06:48 - Medications Medications: Current Medications Fluphenazine HCl (Prolixin) 5 mg PO 1600 [facility] PRN Reason: Protocol Fluphenazine HCl (Prolixin) 5 mg PO AMHS [facility] PRN Reason: Protocol Lorazepam (Ativan) 1 mg PO AMHS [facility] PRN Reason: Protocol Last Admin: 08/04/16 09:28 Dose: 1 mg Olanzapine (Zyprexa Zydis) 5 mg PO DAILY@0900 [facility] PRN Reason: Protocol Last Admin: 08/04/16 09:27 Dose: 5 mg Olanzapine (Zyprexa Zydis) 10 mg PO HS [facility] PRN Reason: Protocol Zaleplon (Sonata) 10 mg PO HS PRN PRN Reason: Insomnia Last Admin: 07/31/16 21:31 Dose: 10 mg Attending/Attestation - Attestation I have personally seen and examined this patient.: Yes I have fully participated in the care of the patient.: Yes I have reviewed all pertinent clinical information, including history, physical exam and plan: Yes Notes (Text): I have seen and examined patient at bedside. Agree with the above note. All the labs reviewed. Discussed the plan with the patient.
[2016-07-30] MEDS: OLANZapine 5 mg Disintegrating Tab PO SCH ×3 (09:26→22:20)
--- NOTE | 2016-07-30 10:27 | PCM.PYCHPN ---
Psychiatric Progress Note - Psychiatric Progress Note Patient seen today, length of contact: 25 min Patient Chief Complaint: "mood is normal" Problems Identified/Issues Discussed: I reviewed recent notes and patient was interviewed at bedside. Patient is calm and superficially cooperative during questioning. Appearance remains unkempt. He is oddly related but again, not overtly bizarre. Eye contact is poor. Patient still appears quite preoccupied with flat affect. Thought blocking is improving however patient still reluctantly responds to my questioning. Patient jeremy reports that his "mood is better, normal", no change from his prior responses. Responses are brief without elaboration though relevant to questioning Negative symptoms do not appear to have improved significantly despite encouragement by this provider. On a daily basis I review circumstances of his admission and reason for continued hospitalization. I also review his mother's concerns about him. He doesn't respond much to this information and still doesn't appear completely engaged during my interview. Nonetheless staff have noticed that patient is a little more interactive the unit and likes to play card games with peers. He also seems better able to communicate his needs. However when he is confronted with stressors such as recent family meeting he can be very brittle and argumentative. Even with this structured setting and support, he still requires redirection and repeated reminders about the seriousness of his behaviors prior to admission. Patient jeremy reports that his "mood is normal", no change from his prior responses. Responses are brief without elaboration though relevant to questioning. Patient denies having any hallucinations. Delusions were not elicited. Anxiety is reportedly under control. Patient denies any new discomfort or pain and has been tolerating his medications. Slept well again last night. There were no behavioral issues overnight. Diagnostic Results: schizophrenia with catatonic features r/o schizoaffective Medication Change: Yes (Increased zyprexa on 07/25/16 and again on 07/26/16) Medical Record Reviewed: Yes (reports, labs, vitals, notes) Mental Status Examination - Cognitive Function Orientation: Person, Place, Situation Memory: Intact Attention: WNL Concentration: Poor Association: Loose Fund of Knowledge: Poor - Mood Mood: Depressed ("mood is normal"), Anxious - Affect Affect: Flat - Speech Speech: Appropriate - Formal Thought Process Formal Thought Process: Delusions (government related delusions noted on 07/25/16 ), Paranoia (appears guarded, flat today, no paranoid delusions elicited) - Suicidal Ideation Suicidal Ideation: No - Homicidal Ideation Homicidal Ideation: No Goal/Treatment Plan - Goal/Treatment Plan Need for Continued Stay: Remain at risks for inpatient hospitalization, Severe depression anxiety, Discharge may exacerbated symptoms, Severe functional impairment Progress Toward Problem(s) and Goals/Treatment Plan: * c/w current tx and plan * Patient seen by Dr. Dominguez on 07/17/16~signed off case * Patient seen by Dr. Cao/Dr. Chamorro regarding leg pain on 07/29/16~no new recommendations * Increased Zyprexa Zydis on 07/25/16 to 5 mg AM & 12.5 mg HS for psychosis/ disorganization and again on 07/26/16 to 5 mg AM & 15 mg HS for delusional TP. Increased Zyprexa again on 07/29/16 to 5 mg AM & 17.5 mg HS for continued negative symptoms. * c/w Ativan 1 mg AM/HS for anxiety and mood control, also as a prophylaxis for EPS * c/w Sonata 10 mg HS prn: insomnia * No new labs overnight * Vitals reviewed and noted below: Selected Entries 07/29/16 07/29/16 06:36 16:42 Temperature 98.2 F Pulse Rate 67 86 Respiratory 19 Rate Blood Pressure 101/62 143/92 H Estimated Date of D/C: 07/25/16 ( monitor closely)
[2016-07-31] MEDS: OLANZapine 5 mg Disintegrating Tab PO SCH (08:28)
--- NOTE | 2016-07-31 10:33 | PCM.PYCHPN ---
Psychiatric Progress Note - Psychiatric Progress Note Patient seen today, length of contact: 25 min Patient Chief Complaint: "mood is normal" Problems Identified/Issues Discussed: I reviewed recent notes and patient was interviewed at bedside. Patient is calm and superficially cooperative during questioning. Appearance remains unkempt despite multiple reminders to attend to his grooming. He is oddly related but again, not overtly bizarre. Eye contact is poor. Patient still appears quite preoccupied with flat affect. Thought blocking is improving however patient still appears to reluctantly respond to my questioning. Speech remains underproductive and responses are brief without elaboration though relevant to questioning. Patient flatly reports that his "mood is better, normal", unchanged from his prior responses. Patient actually told nursing a few days ago that he has not been feeling better. Negative symptoms do not appear to have improved significantly despite encouragement by this provider. On a daily basis I review circumstances of his admission and reason for continued hospitalization. I also review his mother's concerns about him. He doesn't respond much to this information and still doesn't appear completely engaged during my interview. Nonetheless staff have noticed that patient is a little more interactive the unit and likes to play card games with peers. He also seems better able to communicate his needs. However when he is confronted with stressors such as recent family meeting x2 days ago he can be very brittle and argumentative. Even within the structured setting and support of this unit, he still requires support and repeated reminders about the seriousness of the circumstances prior to admission. Patient denies having any hallucinations. Delusions were not elicited. Anxiety is reportedly under control. Patient denies any new discomfort or pain and has been tolerating his medications. Slept well again last night. There were no behavioral issues overnight. Diagnostic Results: schizophrenia with catatonic features r/o schizoaffective Medication Change: Yes (Increased zyprexa ) Medical Record Reviewed: Yes (reports, labs, vitals, notes) Mental Status Examination - Cognitive Function Orientation: Person, Place, Situation - Mood Mood: Depressed, Anxious - Affect Affect: Constricted - Speech Speech: Appropriate - Formal Thought Process Formal Thought Process: Other (focus is impaired) - Suicidal Ideation Suicidal Ideation: No - Homicidal Ideation Homicidal Ideation: No Goal/Treatment Plan - Goal/Treatment Plan Need for Continued Stay: Remain at risks for inpatient hospitalization, Severe depression anxiety, Discharge may exacerbated symptoms, Severe functional impairment Progress Toward Problem(s) and Goals/Treatment Plan: * c/w current tx and plan * Patient seen by Dr. Dominguez on 07/17/16~signed off case * Patient seen by Dr. Cao/Dr. Chamorro regarding leg pain on 07/29/16~no new recommendations * Increased Zyprexa Zydis on 07/31/16 to 5 mg AM & 20 mg HS for psychosis/ disorganization/negative symptoms * c/w Ativan 1 mg AM/HS for anxiety and mood control, also as a prophylaxis for EPS * c/w Sonata 10 mg HS prn: insomnia * No new labs overnight * Vitals reviewed and noted below: Selected Entries 07/31/16 06:49 Temperature 97.6 F Pulse Rate 76 Respiratory 18 Rate Blood Pressure 92/60 L Estimated Date of D/C: 07/25/16 ( monitor closely)
[2016-07-31] MEDS: OLANZapine 10 mg Disintegrating Tab PO SCH (21:31)
[2016-08-01] MEDS: OLANZapine 5 mg Disintegrating Tab PO SCH (09:30)
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
[2016-08-01] MEDS: OLANZapine 10 mg Disintegrating Tab PO SCH (23:04)
--- NOTE | 2016-08-02 09:18 | PCM.PYCHPN ---
Psychiatric Progress Note - Psychiatric Progress Note Patient seen today, length of contact: 25 minutes Patient Chief Complaint: "mood is normal" Problems Identified/Issues Discussed: I reviewed recent notes and patient was interviewed at bedside. Patient is calm and superficially cooperative during questioning. Appearance remains unkempt despite multiple reminders to attend to his grooming. He is oddly related but again, not overtly bizarre. Eye contact is poor. Patient still appears quite preoccupied with flat affect. Thought blocking is improving however patient still appears to reluctantly respond to my questioning. Speech remains underproductive and responses are brief without elaboration though relevant to questioning. Patient flatly again reports that his "mood is normal" , unchanged from his prior responses. Patient still doesn't appear completely engaged during my interviews. Patient denies having any hallucinations. Delusions were not elicited. Anxiety is reportedly under control. Patient denies any new discomfort or pain and has been tolerating his medications, including prolixin which was started yesterday. Slept well again last night. There were no behavioral issues overnight. Diagnostic Results: schizophrenia with catatonic features r/o schizoaffective Medication Change: No ( ) Medical Record Reviewed: Yes (reports, labs, vitals, notes) Mental Status Examination - Cognitive Function Orientation: Person, Place, Situation Attention: Poor Concentration: Poor Association: Loose Fund of Knowledge: WNL - Mood Mood: Depressed, Anxious - Affect Affect: Constricted - Speech Speech: Appropriate - Formal Thought Process Formal Thought Process: Other (focus is impaired, disorganized thougths and behavior) - Suicidal Ideation Suicidal Ideation: No - Homicidal Ideation Homicidal Ideation: No Goal/Treatment Plan - Goal/Treatment Plan Need for Continued Stay: Remain at risks for inpatient hospitalization, Severe depression anxiety, Discharge may exacerbated symptoms, Severe functional impairment Progress Toward Problem(s) and Goals/Treatment Plan: * c/w current tx and plan * No new labs overnight * Vitals reviewed and noted below: Selected Entries 08/01/16 08/01/16 06:27 16:35 Temperature 97.6 F Pulse Rate 74 95 H Respiratory 20 Rate Blood Pressure 92/50 L 99/46 L Estimated Date of D/C: 08/08/16 ( monitor closely)
[2016-08-02] MEDS: OLANZapine 5 mg Disintegrating Tab PO SCH (09:24)
[2016-08-02] MEDS: OLANZapine 10 mg Disintegrating Tab PO SCH (22:33)
--- NOTE | 2016-08-03 08:40 | PCM.PYCHPN ---
Psychiatric Progress Note - Psychiatric Progress Note Patient seen today, length of contact: 25 minutes Patient Chief Complaint: "mood is normal" Problems Identified/Issues Discussed: I reviewed recent notes and patient was interviewed at bedside. Patient remains calm and superficially cooperative during questioning. Appearance is unkempt despite multiple reminders to attend to his grooming. He is oddly related but again, not overtly bizarre. Eye contact is poor and patient never looks up from under his sheet this morning. Patient still appears preoccupied with flat affect. Thought blocking is improving however patient still appears to reluctantly respond to my questioning. Speech remains underproductive and responses are brief without elaboration though relevant to questioning. Patient flatly again reports that his "mood is normal", unchanged from prior responses. Patient still doesn't completely engage during my interviews with him. Patient denies having any hallucinations. Delusions were not elicited. Anxiety is reportedly under control. Patient denies any new discomfort or pain and has been tolerating his medications, including prolixin which was started 2 days ago. Slept well again last night. Somewhat apathetic around the unit. There were no behavioral issues over the weekend. Diagnostic Results: schizophrenia with catatonic features r/o schizoaffective Medication Change: No ( ) Medical Record Reviewed: Yes (reports, labs, vitals, notes) Mental Status Examination - Cognitive Function Orientation: Person, Place, Situation Attention: Poor Concentration: Poor Association: Loose Fund of Knowledge: WNL - Mood Mood: Depressed, Anxious - Affect Affect: Constricted - Speech Speech: Appropriate - Formal Thought Process Formal Thought Process: Other (focus is impaired, disorganized thougths and behavior) - Suicidal Ideation Suicidal Ideation: No - Homicidal Ideation Homicidal Ideation: No Goal/Treatment Plan - Goal/Treatment Plan Need for Continued Stay: Remain at risks for inpatient hospitalization, Severe depression anxiety, Discharge may exacerbated symptoms, Severe functional impairment Progress Toward Problem(s) and Goals/Treatment Plan: * c/w current tx and plan * No new labs overnight * Vitals reviewed and noted below: Selected Entries 08/02/16 08/02/16 08/02/16 06:00 17:51 23:57 Temperature 97.7 F Pulse Rate 75 110 H 110 H Respiratory 18 Rate Blood Pressure 101/50 L 131/87 131/87 Estimated Date of D/C: 08/08/16 ( monitor closely)
[2016-08-03] MEDS: OLANZapine 5 mg Disintegrating Tab PO SCH (09:14)
[2016-08-03] MEDS: OLANZapine 10 mg Disintegrating Tab PO SCH (21:18)
[2016-08-04] MEDS: OLANZapine 5 mg Disintegrating Tab PO SCH (09:27)
[2016-08-04] MEDS ORDERED: OLANZapine 10 mg Disintegrating Tab PO SCH (11:00)
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
[2016-08-05] MEDS: OLANZapine 5 mg Disintegrating Tab PO SCH (08:58)
[2016-08-05] MEDS ORDERED: OLANZapine 10 mg Disintegrating Tab PO SCH (11:15)
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
[2016-08-06 07:24] VITALS: RESP 20
[2016-08-06] MEDS: OLANZapine 5 mg Disintegrating Tab PO SCH (08:59)
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
[2016-08-07] MEDS ORDERED: fluPHENAZine Decanoate 25 mg/mL Inj(5ml) IM ONE (10:00)
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
[2016-08-08 07:13] VITALS: BP 125/75; PULSE 74; TEMP 97
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
== END 2016-08-08 15:12 | disposition home or self-care (01) | DRG 430 ==
LOC: ED 17:25 → ERH 21:45 → PSYC 23:06
PROVIDERS: ADMIT Psychiatry & Neurology Psychiatry; ATTEND Psychiatry & Neurology Psychiatry
DX: F25.9 Schizoaffective disorder, unspecified (principal); F20.2 Catatonic schizophrenia; F12.10 Cannabis abuse, uncomplicated; M79.606 Pain in leg, unspecified; F17.210 Nicotine dependence, cigarettes, uncomplicated; Z91.14 Patient's other noncompliance with medication regimen

== ENCOUNTER 2016-08-13 18:19 | Emergency (ER) | payer MEDICAID ==
[2016-08-13 18:20] VITALS: BMI 20.3
[2016-08-13 19:19] VITALS: TEMP 98.9
[2016-08-13] MEDS ORDERED: Sodium Chloride 0.9% 1,000 ML IV STA (19:33)
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
[2016-08-13 20:18] LABS: ADD MANUAL DIFF? NO; BASO # 0.03 K/mm3 (0.0-2.0); BASO % 0.3 % (0.0-3.0); EOS # 0.5 (0.0-0.7); EOS % 5.1 % (1.5-5.0); GRAN # 5.89 (1.4-6.5); GRAN % 62.5 % (50.0-68.0); HEMATOCRIT 43.3 % (42.0-52.0); LYMPH # 2.2 (1.2-3.4); MEAN CELL VOLUME 87.8 fL (80.0-105.0); MEAN CORPUSCULAR HEMOGLOBIN 31.4 pg (25.0-35.0); MEAN CORPUSCULAR HGB CONC 35.8 g/dl (31.0-37.0); MEAN PLATELET VOLUME 10.1 fl (7.0-11.0); MONO # 0.9 (0.1-0.6); MONO % 9.1 % (1.0-6.0); PLATELET COUNT 292 10^3/uL (120.0-450.0); RED CELL DISTRIBUTION WIDTH 12.3 % (11.5-14.5); WHITE BLOOD COUNT 9.4 10^3/ul (4.5-11.0)
[2016-08-13 20:36] LABS: ALB/GLOB RATIO 1.1 (1.1-1.8); ALKALINE PHOSPHATASE 45 U/L (38-133); ALT/SGPT 87 U/L (7-56); AST/SGOT 53 U/L (15-59); BILIRUBIN,TOTAL 0.9 mg/dL (0.2-1.3); BLOOD UREA NITROGEN 17 mg/dL (7-21); CALCIUM 9.5 mg/dL (8.4-10.5); CARBON DIOXIDE 26 mmol/L (21-33); CHLORIDE 99 mmol/L (98-107); GFR AFRICAN-AMERICAN > 60; GLUCOSE,RANDOM 81 mg/dL (70-110); LIPASE 154 U/L (23-300); SODIUM 137 mmol/L (132-148); TOTAL PROTEIN 8.8 g/dL (5.8-8.3)
[2016-08-13 20:37] LABS: POTASSIUM 4.2 mmol/L (3.6-5.0)
[2016-08-13 21:51] LABS: URINE APPEARANCE CLEAR (CLEAR); URINE BILIRUBIN NEGATIVE (NEGATIVE); URINE BLOOD NEGATIVE (NEGATIVE); URINE COLOR YELLOW (YELLOW); URINE GLUCOSE (UA) NEGATIVE (NEGATIVE); URINE KETONE NEGATIVE (NEGATIVE); URINE LEUKOCYTE ESTERASE NEGATIVE Leu/uL (NEGATIVE); URINE PROTEIN NEGATIVE mg/dL (<30 mg/dL); URINE UROBILINOGEN 0.2 E.U./dL (<1 E.U./dL)
[2016-08-13 23:25] VITALS: PULSE 86
[2016-08-14 06:48] VITALS: BP 120/84; RESP 19; O2SAT 96
--- NOTE | 2016-08-14 07:24 | ED PDOC ---
Physical Exam Vital Signs Reviewed: Yes Vital Signs Temp Pulse Resp BP Pulse Ox 08/14/16 06:47 86 19 120/84 96 08/14/16 04:21 78 18 119/72 97 08/13/16 23:25 86 18 105/51 L 100 08/13/16 18:30 98.9 F 98 H 18 127/77 98 Temperature: Afebrile Blood Pressure: Normal Pulse: Regular Respiratory Rate: Normal Appearance: Positive for: Well-Appearing, Non-Toxic, Comfortable Pain Distress: None Mental Status: Positive for: Alert and Oriented X 3 Medical Decision Making ED Course and Treatment: 08/14/16 07:10 Case signed out to me from overnight by Dr. Pena, pending [facility] bed, reevaluation and final disposition. The patient is a 36 year old male who was brought into the emergency department by EMS yesterday evening. EMS was called by the patient mother because patient was stating "my body is whining." Patient states he wanted medical and psychiatric treatment. Patient was medical cleared and evaluated by PES. PES worker spoke to Dr. Kang and stated patient need psychiatric admission. Patient refused to sign in voluntary so [facility] was notified to come evaluate patient. [facility] screener came and saw the patient, who accepted patient but they are awaiting bed availability. On reevaluation, the patient is resting comfortably and in no acute distress at this time. 08/14/16 14:19 Patient was accepted by [facility] and a bed is available. Dr. Trevon Dsouza accepted the case. Patient stable and currently has no complaints. - Lab Interpretations Lab Results: 08/13/16 20:21 08/13/16 20:10 Lab Results 08/13/16 21:20: Urine Opiates Screen Negative, Urine Methadone Screen Negative, Ur Barbiturates Screen Negative, Ur Phencyclidine Scrn Negative, Ur Amphetamines Screen Negative, U Benzodiazepines Scrn Negative, U Oth Cocaine Metabols Negative, U Cannabinoids Screen Negative 08/13/16 21:20: Urine Color Yellow, Urine Appearance Clear, Urine pH 6.0, Ur Specific [place] 1.015, Urine Protein Negative, Urine Glucose (UA) Negative, Urine Ketones Negative, Urine Blood Negative, Urine Nitrate Negative, Urine Bilirubin Negative, Urine Urobilinogen 0.2, Ur Leukocyte Esterase Negative 08/13/16 20:30: Salicylates < 1 L, Acetaminophen < 10.0 L 08/13/16 20:21: WBC 9.4, RBC 4.93, Hgb 15.5, Hct 43.3, MCV 87.8, MCH 31.4, MCHC 35.8, RDW 12.3, Plt Count 292, MPV 10.1, Gran % 62.5, Lymph % (Auto) 23.0, [place] % (Auto) 9.1 H, Eos % (Auto) 5.1 H, Baso % (Auto) 0.3, Gran # 5.89, Lymph # 2.2 , [place] # 0.9 H, Eos # 0.5, Baso # 0.03 08/13/16 20:10: Alcohol, Quantitative < 10 08/13/16 20:10: Sodium 137, Potassium 4.2, Chloride 99, Carbon Dioxide 26, Anion Gap 16, BUN 17, Creatinine 1.0, Est GFR ( Amer) > 60, Est GFR (Non- Af Amer) > 60, Random Glucose 81, Calcium 9.5, Total Bilirubin 0.9, AST 53, ALT 87 H, Alkaline Phosphatase 45, Total Creatine Kinase 335 H, CK-MB (CK-2) 0.9, CK -MB (CK-2) % Cancelled, Total Protein 8.8 H, Albumin 4.7, Globulin 4.1, Albumin/ Globulin Ratio 1.1, Lipase 154 I have reviewed the lab results: Yes - RAD Interpretation Radiology Orders: 08/13/16 20:42 CHEST PORTABLE [RAD] Stat - Medication Orders Current Medication Orders: Benztropine Mesylate (Cogentin) 2 mg PO BID [facility] Last Admin: 08/14/16 10:18 Dose: 2 mg Comments: duplicate Lorazepam (Ativan) 2 mg IM Q6H PRN; Protocol PRN Reason: agitation,restless Discontinued Medications Benztropine Mesylate (Cogentin) 2 mg PO STAT STA Stop: 08/14/16 09:19 Last Admin: 08/14/16 10:18 Dose: 2 mg Sodium Chloride (Sodium Chloride 0.9%) 1,000 mls @ 999 mls/hr IV .Q1H1M STA Stop: 08/13/16 20:33 Last Admin: 08/13/16 20:10 Dose: 999 mls/hr - Scribe Statement The provider has reviewed the documentation as recorded by the Thomas Odonnell Provider Thomas Attestation: All medical record entries made by the Thomas were at my direction and personally dictated by me. I have reviewed the chart and agree that the record accurately reflects my personal performance of the history, physical exam, medical decision making, and the department course for this patient. I have also personally directed, reviewed, and agree with the discharge instructions and disposition. Disposition/Present on Arrival - Present on Arrival Any Indicators Present on Arrival: No History of DVT/PE: No History of Uncontrolled Diabetes: No Urinary Catheter: No History of Decub. Ulcer: No History Surgical Site Infection Following: None - Disposition Have Diagnosis and Disposition been Completed?: Yes Diagnosis: Schizophrenia Disposition: Transfer [facility] Disposition Time: 14:19 Patient Plan: Transfer To Patient Problems: Current Active Problems Problem Status Onset Schizophrenia Chronic Condition: STABLE Referrals: Mendoza Palacio MD [Primary Care Provider] - Follow up with primary
--- NOTE | 2016-08-14 08:03 | RAD ---
HISTORY: MEDICAL CLEARANCE COMPARISON: No prior. FINDINGS: LUNGS: No active pulmonary disease. PLEURA: No significant pleural effusion identified, no pneumothorax apparent. CARDIOVASCULAR: Normal. OSSEOUS STRUCTURES: No significant abnormalities. VISUALIZED UPPER ABDOMEN: Normal. OTHER FINDINGS: None. IMPRESSION: No active disease.
--- NOTE | 2016-08-14 12:18 | CARD ---
APPROVED REPORT EKG Measurement Heart [id number] CO [id number] <Conclusion> Normal sinus rhythm Normal ECG
--- NOTE | 2016-08-15 08:06 | CON ---
DATE: 08/14/2016 HISTORY OF PRESENT ILLNESS: Shortly, the patient is a 36-year-old male with long history of schizoaf fective disorder. The patient was recently discharged from the psychiatric inpatient unit. The [place] ent was initiated on Prolixin Dec which was given less than a week ago. The patient came back to the Emergency Room complaining that he feels restless, as well as sore in his muscles. Most likely [place] ent had EPS symptoms. When this lead technical writer rotated in the Emergency Room, the patient already was screen ed by [facility], was accepted and the patient is waiting for a bed to be available [facility] under involuntary status. This lead technical writer started Cogentin for this patient . Risks, benefits, alternatives of the medication were discussed with the patient. Labs reviewed, v ital signs reviewed. There is no agitation or aggression at the present moment. The patient is unde r involuntary status, cannot sign consent for voluntary admission. The patient will be followed up b y psychiatrist at [facility]. Should you have any questions, give me a call back. LABORATORY DATA: Reviewed. MEDICATIONS: Reviewed. VITAL SIGNS: Reviewed. MENTAL STATUS EXAMINATION: The patient appears to be alert, slow with his motion. There is no cogwh eel rigidity, but some mild tremor. Mood described as "fine." Affect was flat. Thought process: T he patient has thought blocking. Thought content: The patient denied visual, auditory, or tactile h allucinations. Denied paranoid ideation. The patient denied thoughts of killing himself or others. Insight and judgment are improving. Impulses are well controlled. IMPRESSION: History of schizoaffective disorder. Most likely patient has EPS symptoms. PLAN: The patient was accepted by [facility] under involuntary status. The patient was on Prolixin Dec 50 mg IM. Last time was given on 08/07. The patient needs to continue on Cogenti n. If patient will be restless, most likely it is akathisia. The patient used to be on benzodiazepi priscila. Please provide this report to [facility] psychiatric inpatient unit. Thank you very much for letting me participate in the care of your patient. Bhumi Stafford MD cc: [id number] TT: 08/14/2016 19:19:20 Confirmation # [id number] Dictation # [id number]
== END 2016-08-14 14:48 | disposition short-term general hospital (02) ==
LOC: ED 18:19
DX: F20.9 Schizophrenia, unspecified (principal)
CPT/HCPCS: 71010; 80053; 80320; 80324; 80329; 80345; 80346; 80349; 80353; 80358; 80361; 81003; 82550; 82553; 83690; 83992; 85025; 90791; 93005; 96360; 99284; J7040